=== PATIENT | female | born 1990 | race Caucasian/White ===

== ENCOUNTER 2018-07-29 22:23 | Emergency (ER) | payer SELFPAY ==
[2018-07-29 23:11] LABS: Absolute Lymphocytes (CBC) 2.9 K/uL (0.7-4.9); Absolute Monocytes 0.8 K/uL (0.1-1.3); Absolute Neutrophil 5.9 K/uL (1.8-8.0); Basophils % 0.4 % (0-1.3); Eosinophils % 0.2 % (0-4.4); Hematocrit 44.4 % (36.0-45.0); Lymphocytes % 30.3 % (15.3-44.8); MCH 32.1 pg (27.0-35.0); MCV 91.9 fL (80-100); MPV 7.4 fL (7.6-11.3); RBC Red Blood Cell Count 4.83 M/uL (3.86-4.86)
[2018-07-29 23:15] LABS: Protime INR 1.05
[2018-07-29 23:29] LABS: ALT/SGPT 30 U/L (12-78); AST/SGOT 31 U/L (15-37); Albumin 4.4 g/dL (3.4-5.0); Alkaline Phosphatase 78 U/L (45-117); BUN Blood Urea Nitrogen 7 mg/dL (7-18); Bicarbonate 24 mmol/L (21-32); Bilirubin Direct 0.1 mg/dL (0-0.2); Bilirubin Total 0.2 mg/dL (0.2-1.0); Glucose Level 93 mg/dL (74-106); Potassium 3.2 mmol/L (3.5-5.1); Protein, Total 8.7 g/dL (6.4-8.2); Sodium Level 145 mmol/L (136-145)
[2018-07-29] MEDS ORDERED: THIAMINE 200 MG/2 ML INJ ONE (23:45)
[2018-07-29] MEDS ORDERED: MULTIVITAMINS 10 ML VIAL (INJ) IV ONE (23:45)
[2018-07-29] MEDS ORDERED: NA CHLORIDE 0.9% 2,000 ML ONE (23:46)
[2018-07-29] MEDS ORDERED: FOLIC ACID 5 MG/ML VIAL ONE (23:46)
[2018-07-30] MEDS ORDERED: POTASSIUM CL SA 10 MEQ TAB PO ONE (00:13)
[2018-07-30] MEDS ORDERED: ACETAMINOPHEN 325 MG TABLET ONE (05:49)
[2018-07-30 05:54] LABS: Urine Blood NEGATIVE (NEG); Urine Glucose NEGATIVE (NEG); Urine Protein 1+ (NEG); Urine Specific Gravity >1.030 (1.005-1.030)
[2018-07-30 06:08] LABS: Barbiturates NEGATIVE (NEGATIVE); Benzodiazepines NEGATIVE (NEGATIVE); Cocaine POSITIVE (NEGATIVE); METHAMPHETAM NEGATIVE (NEGATIVE); Methadone NEGATIVE (NEGATIVE); Opiates NEGATIVE (NEGATIVE); Phencyclidine NEGATIVE (NEGATIVE); THC Cannibis NEGATIVE (NEGATIVE)
--- NOTE | 2018-07-30 09:07 | EDPHYS ---
Physician Documentation [facility] Name: Mallorie Munson Age: 28 yrs Sex: Female : 1990 Arrival Date: 07/29/2018 Time: 22:24 Bed 7 Private MD: Rich Stevens T ED Physician Marcin Mims HPI: 07/29 23:37 This 28 yrs old Female presents to ER via Ambulatory with complaints of jr8 Suicidal Ideation. 23:37 The patient presents to the emergency department with suicide ideation, and the patient jr8 has a plan, to cut oneself and bleed. Onset: The symptoms/episode began/occurred acutely, today. Past psychiatric history: Prior diagnosis: depression. Associated signs and symptoms: The patient has no apparent associated signs or symptoms. Severity of symptoms: At their worst the symptoms were moderate in the emergency department the symptoms are unchanged. It is unknown whether or not the patient has had similar symptoms in the past. The patient has not recently seen a physician. Patient stated that she has been depressed for several years. Recent divorce about 3 weeks ago. Has been living with parents since then. Family stated that she has been drinking heavily. Went to get her tonight. After being brought home patient went and grabbed scissors in attempt to cut her wrists. Patient dropped them after the father entered the room. Patient admits to wanting to kill herself. Stated that there is no reason to live any longer . 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 tw2 Historical: - Allergies: 07/29 22:44 No Known Allergies; fc - Home Meds: 22:44 Xanax 2 mg Oral tab twice a day for Anxiety, Panic Disorder [Active]; fc - PMHx: 22:44 Anxiety; Panic Attacks; Depression; fc - PSHx: 22:44 Tonsillectomy; fc - Immunization history:: Last tetanus immunization: unknown. - Social history:: Smoking status: Patient uses tobacco products, smokes one pack cigarettes per day. Patient uses alcohol, on a daily basis. - Ebola Screening: : Patient negative for fever greater than or equal to 101.5 degrees Fahrenheit, and additional compatible Ebola Virus Disease symptoms Patient denies exposure to infectious person Patient denies travel to an Ebola-affected area in the 21 days before illness onset. ROS: 23:37 Eyes: Negative for injury, pain, redness, and discharge, ENT: Negative for injury, jr8 pain, and discharge, Neck: Negative for injury, pain, and swelling, Cardiovascular: Negative for chest pain, palpitations, and edema, Respiratory: Negative for shortness of breath, cough, wheezing, and pleuritic chest pain, Abdomen/GI: Negative for abdominal pain, nausea, vomiting, diarrhea, and constipation, Back: Negative for injury and pain, MS/Extremity: Negative for injury and deformity, Skin: Negative for injury, rash, and discoloration, Neuro: Negative for headache, weakness, numbness, tingling, and seizure. 23:37 Psych: Positive for anxiety, depression, alcohol dependence, suicide gesture, suicidal ideation. Exam: 23:37 Eyes: Pupils equal round and reactive to light, extra-ocular motions intact. Lids and jr8 lashes normal. Conjunctiva and sclera are non-icteric and not injected. Cornea within normal limits. Periorbital areas with no swelling, redness, or edema. ENT: Nares patent. No nasal discharge, no septal abnormalities noted. Tympanic membranes are normal and external auditory canals are clear. Oropharynx with no redness, swelling, or masses, exudates, or evidence of obstruction, uvula midline. Mucous membranes moist. Neck: Trachea midline, no thyromegaly or masses palpated, and no cervical lymphadenopathy. Supple, full range of motion without nuchal rigidity, or vertebral point tenderness. No Meningismus. Cardiovascular: Regular rate and rhythm with a normal S1 and S2. No gallops, murmurs, or rubs. Normal PMI, no JVD. No pulse deficits. Respiratory: Lungs have equal breath sounds bilaterally, clear to auscultation and percussion. No rales, rhonchi or wheezes noted. No increased work of breathing, no retractions or nasal flaring. Abdomen/GI: Soft, non-tender, with normal bowel sounds. No distension or tympany. No guarding or rebound. No evidence of tenderness throughout. Back: No spinal tenderness. No costovertebral tenderness. Full range of motion. Skin: Warm, dry with normal turgor. Normal color with no rashes, no lesions, and no evidence of cellulitis. MS/ Extremity: Pulses equal, no cyanosis. Neurovascular intact. Full, normal range of motion. Neuro: Awake and alert, GCS 15, oriented to person, place, time, and situation. Cranial nerves II-XII grossly intact. Motor strength 5/5 in all extremities. Sensory grossly intact. Cerebellar exam normal. Normal gait. 23:37 Psych: Behavior/mood is cooperative, suicidal, depressed, Affect is flat, Oriented to person, place, time, Patient having thoughts of suicide. Plan for suicide is See HPI Judgement / Insight is impaired. Memory is normal. Delusions/hallucinations are not present. Vital Signs: 22:25 BP 135 / 100; Pulse 110; Resp 20; Temp 98.4(O); Pulse Ox 98% on R/A; Weight 63.5 kg fc (R); Height 5 ft. 2 in. (157.48 cm) (R); Pain 0/10; 07/30 02:47 BP 113 / 64 LA Supine (auto/reg); Pulse 71; Resp 16; Pulse Ox 100% on R/A; Pain 0/10; cc 05:42 BP 118 / 90; Pulse 81; Resp 16; Pulse Ox 99% on R/A; Pain 1/10; cc 09:25 BP 119 / 84; Pulse 71; Resp 18; Temp 99; Pulse Ox 99% ; sv 13:00 BP 130 / 90; Pulse 60; Resp 14; Pulse Ox 99% ; eo 16:43 BP 116 / 81; Pulse 81; Resp 16; Pulse Ox 100% on R/A; Pain 0/10; ms2 20:00 BP 126 / 83; Pulse 80; Resp 18; Temp 98.4; Pulse Ox 98% ; aa8 07/31 00:00 BP 101 / 73; Pulse 83; Resp 16; Temp 97.5; Pulse Ox 98% ; aa8 04:00 BP 134 / 83; Pulse 69; Resp 20; Temp 97.6; Pulse Ox 98% ; aa8 08:00 BP 128 / 93; Pulse 58; Resp 16; Temp 97.1; Pulse Ox 98% ; km7 07/29 22:25 Body Mass Index 25.61 (63.50 kg, 157.48 cm) fc MDM: 07/29 22:27 Patient medically screened. pkl 07/30 08:04 Patient medically screened. [facility] 07/31 08:50 Data reviewed: vital signs, nurses notes, lab test result(s), EKG. [facility] 07/29 22:38 Order name: Acetaminophen [facility] 07/29 22:38 Order name: Basic Metabolic Panel [facility] 07/29 22:38 Order name: CBC with Diff [facility] 07/29 22:38 Order name: ETOH Level; Complete Time: 23:31 8 07/29 22:38 Order name: Hepatic Function; Complete Time: 23:31 8 07/29 22:38 Order name: PT-INR; Complete Time: 23:27 [facility] 07/29 22:38 Order name: Ptt, Activated; Complete Time: 23:27 [facility] 07/29 22:38 Order name: Salicylate; Complete Time: 23:42 8 07/29 22:38 Order name: Urine Drug Screen; Complete Time: 07:31 [facility] 07/29 22:38 Order name: EKG; Complete Time: 22:38 [facility] 07/29 22:38 Order name: Acetaminophen Level; Complete Time: 23:31 EDMS 07/29 22:38 Order name: Basic Metabolic Panel; Complete Time: 23:31 EDIL 07/29 22:38 Order name: CBC with Automated Diff; Complete Time: 23:27 EDIL 07/30 05:45 Order name: Urine Dipstick--Ancillary (enter results); Complete Time: 07:31 ms 07/30 05:45 Order name: Urine --Ancillary (enter results); Complete Time: 07:31 ms 07/30 07:23 Order name: Diet Regular; Complete Time: 07:24 eb 07/30 07:31 Order name: Alcohol Level; Complete Time: 15:07 jaren 07/29 22:38 Order name: Urine Test (obtain specimen); Complete Time: 05:50 [facility] 07/29 22:38 Order name: EKG - Nurse/Tech; Complete Time: 22:59 [facility] 07/29 22:38 Order name: IV Saline Lock; Complete Time: 22:59 [facility] 07/29 22:38 Order name: Labs collected and sent; Complete Time: 22:59 [facility] 07/29 22:38 Order name: Urine Dipstick-Ancillary (obtain specimen); Complete Time: 05:42 8 07/30 12:26 Order name: Diet Finger Food; Complete Time: 12:26 hb Administered Medications: 07/30 00:01 Drug: NS 0.9% 1000 ml Route: IV; Rate: 1000 ml; Site: right antecubital; bp 05:50 Follow up: IV Status: Completed infusion; IV Intake: 1000ml bp 00:02 Drug: Banana Bag - (NS 0.9% 1000 ml, foLIC Acid 1 mg, Thiamine 100 mg, Multivitamin 1 bp amp) Route: IV; Rate: calculated rate; Site: right antecubital; 05:50 Follow up: IV Status: Completed infusion; IV Intake: 1000ml bp 00:05 Drug: Potassium Chloride 40 mEq Route: PO; bp 05:46 Follow up: Response: No adverse reaction bp 05:49 Drug: Tylenol 650 mg Route: PO; bp 06:00 Follow up: Response: Pain is decreased bp Disposition: 07/31 08:49 Co-signature as Attending Physician, Marcin Mims MD I agree with the assessment and [facility] plan of care. Disposition: 07/31/18 08:51 Discharged to Home. Impression: Suicide attempt, Suicidal ideations, Alcohol abuse with intoxication, Cocaine abuse, Major depressive disorder, recurrent, Hypokalemia. - Condition is Stable. - Discharge Instructions: Alcohol Intoxication, Potassium Content of Foods, Suicidal Feelings: How to Help Yourself, Helping Someone Who is Suicidal, Alcohol Intoxication, [id number], Alcohol Abuse and Nutrition, Hypokalemia. - Medication Reconciliation Form, Thank You Letter, Antibiotic Education, Prescription Opioid Use form. - Follow up: Rich Stevens; When: 1 - 2 days; Reason: Recheck today's complaints, Continuance of care, Re-evaluation by your physician. - Problem is new. - Symptoms have improved. Signatures: Dispatcher [employer] EDMarcin De Souza MD MD cha Lam, Pin, MD MD pkl Chretien, Felicia, RN RN fc Mechelle Lobato RN RN Sven Ryan PA PA jr Yanelis [facility] Davin Upton RN RN bp Corrections: (The following items were deleted from the chart) 07/29 23:41 23:37 Psych: Positive for anxiety, depression, alcohol dependence, suicide gestureaubrey jr8 07/31 08:50 09 09:06 07/30/2018 09:06 Transfer ordered to Psych Facility. Diagnosis is Major jaren depressive disorder, recurrent; Suicidal ideations; Cocaine abuse; Alcohol abuse. Reason for transfer: Higher level of care. Accepting physician is to psych. Condition is Stable. Problem is new. Symptoms have improved. [facility] 07/31 09:35 08:51 07/31/2018 08:51 Discharged to Home. Impression: Suicide attempt; Suicidal dh3 ideations; Alcohol abuse with intoxication; Cocaine abuse; Major depressive disorder, recurrent; Hypokalemia. Condition is Stable. Forms are Medication Reconciliation Form, Thank You Letter, Antibiotic Education, Prescription Opioid Use. Follow up: Rich Stevens; When: 1 - 2 days; Reason: Recheck today's complaints, Continuance of care, Re-evaluation by your physician. Problem is new. Symptoms have improved. jaren
--- NOTE | 2018-07-30 09:07 | ER ---
Nurse's Notes [facility] Name: Mallorie Munson Age: 28 yrs Sex: Female : 1990 Arrival Date: 07/29/2018 Time: 22:24 Bed 7 Private MD: Rich Stevens T Diagnosis: Suicide attempt;Suicidal ideations;Alcohol abuse with intoxication;Cocaine abuse;Major depressive disorder, recurrent;Hypokalemia Presentation: 07/29 22:25 Presenting complaint: Father states: that pt has been drinking today and after picking fc her up to bring her home pt picked up a pair of scissors to hurt herself with. When the patient was asked about this she states that she was going to cut her wrists with them. The father states that the patient has just recently filed for divorce and has become more depressed. She has admitted to being depressed x 8 yrs and her would not buy the medications she needed. Transition of care: patient was not received from another setting of care. Onset of symptoms was 2017. Risk Assessment: Do you want to hurt yourself or someone else? Patient reports desire/thoughts of hurting themselves or someone else. Provider notified. Initial Sepsis Screen: Does the patient meet any 2 criteria? No. Patient's initial sepsis screen is negative. Does the patient have a suspected source of infection? No. Patient's initial sepsis screen is negative. Care prior to arrival: None. 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 tw2 Historical: - Allergies: 07/29 22:44 No Known Allergies; fc - Home Meds: 22:44 Xanax 2 mg Oral tab twice a day for Anxiety, Panic Disorder [Active]; fc - PMHx: 22:44 Anxiety; Panic Attacks; Depression; fc - PSHx: 22:44 Tonsillectomy; fc - Immunization history:: Last tetanus immunization: unknown. - Social history:: Smoking status: Patient uses tobacco products, smokes one pack cigarettes per day. Patient uses alcohol, on a daily basis. - Ebola Screening: : Patient negative for fever greater than or equal to 101.5 degrees Fahrenheit, and additional compatible Ebola Virus Disease symptoms Patient denies exposure to infectious person Patient denies travel to an Ebola-affected area in the 21 days before illness onset. Screenin:41 Abuse screen: Denies threats or abuse. Nutritional screening: No deficits noted. fc Tuberculosis screening: No symptoms or risk factors identified. Fall Risk None identified. Assessment: 22:30 General: Appears in no apparent distress. comfortable, slender, Behavior is bp cooperative, appropriate for age, anxious. General: Smells of alcohol. General: 28YO WF P/W ETOH INTOXICATION AND SUICIDAL IDEATION. PT CITES RECENT FAMILY STRESSORS. +ETOH ODOR, DENIES SUICIDAL ATTEMPT. Pain: Denies pain. Neuro: Level of Consciousness is awake, alert, obeys commands, Oriented to person, place, time, situation, Appropriate for age. Cardiovascular: Rhythm is sinus tachycardia. Respiratory: Airway is patent Respiratory effort is even, unlabored, Respiratory pattern is regular, symmetrical. GI: No signs and/or symptoms were reported involving the gastrointestinal system. : No signs and/or symptoms were reported regarding the genitourinary system. EENT: No deficits noted. Derm: No deficits noted. Musculoskeletal: Circulation, motion, and sensation intact. Range of motion: intact in all extremities. 07/30 01:11 Reassessment: PT UNCOOPERATIVE, REFUSING IVF AND URINE SPECIMEN. PROVIDER NOTIFIED. bp 03:34 Reassessment: MEDICAL CLEARANCE PENDING SOBRIETY, PT RESTING QUIETLY. bp 07:15 Reassessment: Patient appears in no apparent distress at this time. Patient and/or hb family updated on plan of care and expected duration. Pain level reassessed. Patient is alert, oriented x 3, equal unlabored respirations, skin warm/dry/pink. Denies SI/HI at this time. 07:52 Reassessment: Parents called and will be coming up here. sv 08:15 Reassessment: Patient appears in no apparent distress at this time. Patient and/or hb family updated on plan of care and expected duration. Pain level reassessed. Patient is alert, oriented x 3, equal unlabored respirations, skin warm/dry/pink. Denies SI/HI at this time. 08:23 Reassessment: Repeat ETOH sent. hb 09:00 Reassessment: Patient appears in no apparent distress at this time. No changes from hb previously documented assessment. Patient and/or family updated on plan of care and expected duration. Pain level reassessed. Patient is alert, oriented x 3, equal unlabored respirations, skin warm/dry/pink. Reassessment: Patient appears in no apparent distress at this time. No changes from previously documented assessment. Patient and/or family updated on plan of care and expected duration. Pain level reassessed. Patient is alert, oriented x 3, equal unlabored respirations, skin warm/dry/pink. Sitter remains at bedside. 10:00 Reassessment: Patient appears in no apparent distress at this time. Patient and/or family updated on plan of care and expected duration. Pain level reassessed. Patient is alert, oriented x 3, equal unlabored respirations, skin warm/dry/pink. 10:06 Reassessment: spoke with [facility] who reports that they do not have any beds at this time and will call back after they discharge patient around 1500 today. 11:00 Reassessment: Patient appears in no apparent distress at this time. No changes from previously documented assessment. Patient and/or family updated on plan of care and expected duration. Pain level reassessed. Patient is alert, oriented x 3, equal unlabored respirations, skin warm/dry/pink. 12:00 Reassessment: Patient appears in no apparent distress at this time. No changes from previously documented assessment. Patient and/or family updated on plan of care and expected duration. Pain level reassessed. Patient is alert, oriented x 3, equal unlabored respirations, skin warm/dry/pink. 13:00 Reassessment: Patient appears in no apparent distress at this time. No changes from previously documented assessment. Patient and/or family updated on plan of care and expected duration. Pain level reassessed. Patient is alert, oriented x 3, equal unlabored respirations, skin warm/dry/pink. 13:57 Reassessment: Patient appears in no apparent distress at this time. No changes from previously documented assessment. Patient and/or family updated on plan of care and expected duration. Pain level reassessed. Patient is alert, oriented x 3, equal unlabored respirations, skin warm/dry/pink. 14:29 Reassessment: spoke with Darshan Piña who states that they will call back with information within the next hour. [facility] has no beds and patient will remains on waiting list. 15:30 Reassessment: Patient appears in no apparent distress at this time. No changes from hb previously documented assessment. Patient and/or family updated on plan of care and expected duration. Pain level reassessed. 16:30 Reassessment: Patient appears in no apparent distress at this time. No changes from hb previously documented assessment. Patient and/or family updated on plan of care and expected duration. Pain level reassessed. Patient is alert, oriented x 3, equal unlabored respirations, skin warm/dry/pink. 17:30 Reassessment: Patient appears in no apparent distress at this time. No changes from hb previously documented assessment. Resting comfortably with eyes closed. Sitter remains at bedside. 18:30 Reassessment: Patient appears in no apparent distress at this time. No changes from hb previously documented assessment. Patient and/or family updated on plan of care and expected duration. Pain level reassessed. Patient is alert, oriented x 3, equal unlabored respirations, skin warm/dry/pink. Sitter remains at bedside. 19:00 Reassessment: RECD REPORT FROM SHERRI CARD. 28YO WF ORIGINALLY PRESENTED WITH SI AND bp ETOH INTOXICATION. PT NOW AWAITING VOLUNTARY PSYCH TRANSFER. SITTER AT B/S. 07/31 00:00 Reassessment: PT RESTING QUIETLY, STILL ENDORSING DESIRE FOR PSYCH PLACEMENT, NO ACUTE bp S/S OF DISTRESS AT THIS TIME. 04:00 Reassessment: PT RESTING QUIETLY, VS STABLE, PT CALM/COOPERATIVE, PSYCH TRANSFER STILL bp PENDING. 08:10 Reassessment: pt states "i am ready to go home, Dr. Stevens will prescribe the tw2 antidepressants i need", pts father Ghassan called at [phone], pts father is agreeable to discharge and will make sure pt has follow up appts as no facility has a bed for the pt, father will be up here within the hour, Dr. Mims will consult father once he arrives and the potentially discharge. 09:00 Reassessment: Patient appears in no apparent distress at this time. No changes from tw2 previously documented assessment. Patient and/or family updated on plan of care and expected duration. Pain level reassessed. Patient is alert, oriented x 3, equal unlabored respirations, skin warm/dry/pink. pts dad here, conversation with Dr. Mims, plan to get pt to Dr. Stevens for evaluation and treatment and pt and pts dad is agreeable to discharge at this time, security is retrieving pts belongings. Psych: 07/29 22:42 Subjective: Patient's mood is sad, irritable, hopeless, Delusions are denied, fc Hallucinations are denied Having thoughts of suicide. Plan for suicide is to cut wrists. Objective: Patient is uncooperative, defensive, irritable, using poor eye contact, Speech is normal, Affect is flat. Interventions: Removed personal items and placed in bag. Patient placed in hospital gown. Searched person for dangerous items. Suicide Risk Assessment: Sad Person Scale: Sex of patient: Female: Score 0 points. Age of patient: Score 1 point if patient 15-34. Depression: Score 1 point if signs of depression are present. Previous Attempt: Score 1 point if patient has previously attempted suicide. Substance Abuse: Score 1 point if patient abuses alcohol or drugs. Rational Thinking: Score 1 point if patient is lacking rational thinking. Social Support: Score 0 if social support is present/available. Organized Plan: Score 1 point if patient had a plan in place. Relationship: Score 1 point if patient is , , , or for a single male Chronic Sickness: Score 0 point if patient does not have a chronic illness, debilitating, or severe disorder. TOTAL POINTS: If total points are 7-10, the proposed clinical action is to hospitalize or commit. Implement suicide precautions. Safety Checks: Personal items have been removed. Door is open. Visitors are present. Patient uses daily. Last use was today. Vital Signs: 22:25 BP 135 / 100; Pulse 110; Resp 20; Temp 98.4(O); Pulse Ox 98% on R/A; Weight 63.5 kg fc (R); Height 5 ft. 2 in. (157.48 cm) (R); Pain 0/10; 07/30 02:47 BP 113 / 64 LA Supine (auto/reg); Pulse 71; Resp 16; Pulse Ox 100% on R/A; Pain 0/10; cc 05:42 BP 118 / 90; Pulse 81; Resp 16; Pulse Ox 99% on R/A; Pain 1/10; cc 09:25 BP 119 / 84; Pulse 71; Resp 18; Temp 99; Pulse Ox 99% ; sv 13:00 BP 130 / 90; Pulse 60; Resp 14; Pulse Ox 99% ; eo 16:43 BP 116 / 81; Pulse 81; Resp 16; Pulse Ox 100% on R/A; Pain 0/10; ms2 20:00 BP 126 / 83; Pulse 80; Resp 18; Temp 98.4; Pulse Ox 98% ; aa8 09 00:00 BP 101 / 73; Pulse 83; Resp 16; Temp 97.5; Pulse Ox 98% ; aa8 04:00 BP 134 / 83; Pulse 69; Resp 20; Temp 97.6; Pulse Ox 98% ; aa8 08:00 BP 128 / 93; Pulse 58; Resp 16; Temp 97.1; Pulse Ox 98% ; km7 07/29 22:25 Body Mass Index 25.61 (63.50 kg, 157.48 cm) ED Course: 07/29 22:24 Patient arrived in ED. es 22:25 Rich Stevens MD is Private Physician. es 22:25 Arm band placed on Patient placed in an exam room, on a stretcher. fc 22:27 Stanley Villa MD is Attending Physician. pkl 22:29 Sven Winn PA is PHCP. jr8 22:40 Triage completed. fc 22:41 Davin Upton, STEPHIE is Primary Nurse. bp 22:41 Patient has correct armband on for positive identification. Placed in gown. Bed in low fc position. Call light in reach. Side rails up X 1. 22:41 No provider procedures requiring assistance completed. fc 22:45 Safety checks: Items removed: yes. Door open/sign placed on door: yes. Family/friend cc present: yes. Family/friends encouraged to stay with patient. Sitter present: Yes. 22:59 Initial lab(s) drawn, by me, sent to lab. Inserted saline lock: 20 gauge in right cc antecubital area, using aseptic technique. Blood collected. 23:00 Safety checks: Items removed: yes. Door open/sign placed on door: yes. Family/friend cc present: yes. Family/friends encouraged to stay with patient. Sitter present: Yes. 23:15 Safety checks: Items removed: yes. Door open/sign placed on door: yes. Family/friend cc present: yes. Family/friends encouraged to stay with patient. Sitter present: Yes. 23:30 Safety checks: Items removed: yes. Door open/sign placed on door: yes. Family/friend cc present: yes. Family/friends encouraged to stay with patient. Sitter present: Yes. 23:45 Safety checks: Items removed: yes. Door open/sign placed on door: yes. Family/friend cc present: no. Sitter present: Yes. 07/30 00:00 Safety checks: Items removed: yes. Door open/sign placed on door: yes. Family/friend cc present: no. Sitter present: Yes. 00:15 Safety checks: Items removed: yes. Door open/sign placed on door: yes. Family/friend cc present: no. Sitter present: Yes. 00:30 Safety checks: Items removed: yes. Door open/sign placed on door: yes. Family/friend cc present: no. Sitter present: Yes. 00:45 Safety checks: Items removed: yes. Door open/sign placed on door: yes. Family/friend cc present: no. Sitter present: Yes. 01:00 Safety checks: Items removed: yes. Door open/sign placed on door: yes. Family/friend cc present: no. Sitter present: Yes. 01:15 Safety checks: Items removed: yes. Door open/sign placed on door: yes. Family/friend cc present: no. Sitter present: Yes. 01:30 Safety checks: Items removed: yes. Door open/sign placed on door: yes. Family/friend cc present: no. Sitter present: Yes. 01:30 Safety checks: Items removed: yes. Door open/sign placed on door: yes. Family/friend aa8 present: no. Sitter present: Yes. 01:45 Safety checks: Items removed: yes. Door open/sign placed on door: yes. Family/friend cc present: no. Sitter present: Yes. 02:00 Safety checks: Items removed: yes. Door open/sign placed on door: yes. Family/friend cc present: no. Sitter present: Yes. 02:15 Safety checks: Items removed: yes. Door open/sign placed on door: yes. Family/friend cc present: no. Sitter present: Yes. 02:30 Safety checks: Items removed: yes. Door open/sign placed on door: yes. Family/friend cc present: no. Sitter present: Yes. 02:37 personal items inventoried and given to security. cc 02:45 Safety checks: Items removed: yes. Door open/sign placed on door: yes. Family/friend cc present: no. Sitter present: Yes. 03:00 Safety checks: Items removed: yes. Door open/sign placed on door: yes. Family/friend cc present: no. Sitter present: Yes. 03:15 Safety checks: Items removed: yes. Door open/sign placed on door: yes. Family/friend cc present: no. Sitter present: Yes. 03:30 Safety checks: Items removed: yes. Door open/sign placed on door: yes. Family/friend cc present: no. Sitter present: Yes. 03:45 Safety checks: Items removed: yes. Door open/sign placed on door: yes. Family/friend cc present: no. Sitter present: Yes. 04:00 Safety checks: Items removed: yes. Door open/sign placed on door: yes. Family/friend cc present: no. Sitter present: Yes. 04:15 Safety checks: Items removed: yes. Door open/sign placed on door: yes. Family/friend cc present: no. Sitter present: Yes. 04:30 Safety checks: Items removed: yes. Door open/sign placed on door: yes. Family/friend cc present: no. Sitter present: Yes. 04:45 Safety checks: Items removed: yes. Door open/sign placed on door: yes. Family/friend cc present: no. Sitter present: Yes. 05:00 Safety checks: Items removed: yes. Door open/sign placed on door: yes. Family/friend cc present: no. Sitter present: Yes. 05:15 Safety checks: Items removed: yes. Door open/sign placed on door: yes. Family/friend cc present: no. Sitter present: Yes. 05:30 Safety checks: Items removed: yes. Door open/sign placed on door: yes. Family/friend cc present: no. Sitter present: Yes. 05:45 Safety checks: Items removed: yes. Door open/sign placed on door: yes. Family/friend cc present: no. Sitter present: Yes. 06:00 Safety checks: Items removed: yes. Door open/sign placed on door: yes. Family/friend cc present: no. Sitter present: Yes. 06:15 Safety checks: Items removed: yes. Door open/sign placed on door: yes. Family/friend cc present: no. Sitter present: Yes. 06:30 Safety checks: Items removed: yes. Door open/sign placed on door: yes. Family/friend cc present: no. Sitter present: Yes. 06:45 Safety checks: Items removed: yes. Door open/sign placed on door: yes. Family/friend cc present: no. Sitter present: Yes. 07:14 Safety checks: Items removed: yes. Door open/sign placed on door: yes. Family/friend em1 present: no. Sitter present: Yes. 07:30 Safety checks: Items removed: yes. Door open/sign placed on door: yes. Family/friend em1 present: no. Sitter present: Yes. 07:45 Safety checks: Items removed: yes. Door open/sign placed on door: yes. Family/friend em1 present: no. Sitter present: Yes. 07:50 Attending Physician role handed off by Stanley Villa MD jaren 07:50 Marcin Mims MD is Attending Physician. jaren 08:04 Safety checks: Items removed: yes. Door open/sign placed on door: yes. Family/friend eo present: no. Sitter present: Yes. 08:15 Safety checks: Items removed: yes. Door open/sign placed on door: yes. Family/friend eo present: no. Sitter present: Yes. 08:22 Alcohol Level Sent. hb 08:30 Safety checks: Items removed: yes. Door open/sign placed on door: yes. Family/friend eo present: no. Sitter present: Yes. 08:45 Safety checks: Items removed: yes. Door open/sign placed on door: yes. Family/friend eo present: no. Sitter present: Yes. 09:00 Safety checks: Items removed: yes. Door open/sign placed on door: yes. Family/friend eo present: yes. Sitter present: Yes. 09:15 Safety checks: Items removed: yes. Door open/sign placed on door: yes. Family/friend eo present: no. Sitter present: Yes. 09:28 faxed patient records to the following facilities for patient transfer ; richelle De Leon [facility], [facility], [facility], [facility], [facility], [facility], [facility], [facility], [facility], [facility], [facility], [facility], [facility]. 09:30 Safety checks: Items removed: yes. Door open/sign placed on door: yes. Family/friend eo present: no. Sitter present: Yes. 09:40 initiated transfer with Urvashi from the [facility] transfer center. Per Urvashi they are eb at capacity and are unable to take any transfers at this time. 09:45 Safety checks: Items removed: yes. Door open/sign placed on door: yes. Family/friend eo present: no. Sitter present: Yes. 10:00 Safety checks: Items removed: yes. Door open/sign placed on door: yes. Family/friend eo present: no. Sitter present: Yes. 10:16 Safety checks: Items removed: yes. Door open/sign placed on door: yes. Family/friend eo present: no. Sitter present: Yes. 10:30 Safety checks: Items removed: yes. Door open/sign placed on door: yes. Family/friend eo present: no. Sitter present: Yes. 10:45 Safety checks: Items removed: yes. Door open/sign placed on door: yes. Family/friend eo present: no. Sitter present: Yes. 11:01 Safety checks: Items removed: yes. Door open/sign placed on door: yes. Family/friend eo present: no. Sitter present: Yes. 11:14 [facility] called and declined the patient in transfer due to them being at eb capacity. 11:15 Safety checks: Items removed: yes. Door open/sign placed on door: yes. Family/friend eo present: no. Sitter present: Yes. 11:30 Safety checks: Items removed: yes. Door open/sign placed on door: yes. Family/friend eo present: no. Sitter present: Yes. 11:45 Safety checks: Items removed: yes. Door open/sign placed on door: yes. Family/friend eo present: no. Sitter present: Yes. 12:00 Safety checks: Items removed: yes. Door open/sign placed on door: yes. Family/friend eo present: no. Sitter present: Yes. 12:15 Safety checks: Items removed: yes. Door open/sign placed on door: yes. Family/friend eo present: no. Sitter present: Yes. 12:30 Safety checks: Items removed: yes. Door open/sign placed on door: yes. Family/friend eo present: no. Sitter present: Yes. 12:45 Safety checks: Items removed: yes. Door open/sign placed on door: yes. Family/friend eo present: yes. Sitter present: Yes. 13:00 Safety checks: Items removed: yes. Door open/sign placed on door: yes. Family/friend eo present: no. Sitter present: Yes. 13:15 Safety checks: Items removed: yes. Door open/sign placed on door: yes. Family/friend eo present: no. Sitter present: Yes. 13:30 Safety checks: Items removed: yes. Door open/sign placed on door: yes. Family/friend eo present: no. Sitter present: Yes. 13:45 Safety checks: Items removed: yes. Door open/sign placed on door: yes. Family/friend eo present: no. Sitter present: Yes. 14:00 Safety checks: Items removed: yes. Door open/sign placed on door: Patient placed in eo hallway bed. yes. Family/friend present: no. Sitter present: Yes. 14:16 Safety checks: Items removed: yes. Door open/sign placed on door: yes. Family/friend ms2 present: Sitter present: Yes. 14:25 Safety checks: Items removed: yes. Door open/sign placed on door: yes. Family/friend ms2 present: no. Sitter present: Yes. 14:36 Safety checks: Items removed: yes. Door open/sign placed on door: yes. Family/friend ms2 present: no. Sitter present: Yes. 14:54 Safety checks: Items removed: yes. Door open/sign placed on door: yes. Family/friend ms2 present: no. Sitter present: Yes. 15:08 Safety checks: Items removed: yes. Door open/sign placed on door: yes. Family/friend ms2 present: no. Sitter present: Yes. 15:38 Safety checks: Items removed: yes. Door open/sign placed on door: yes. Family/friend ms2 present: no. Sitter present: Yes. 15:55 Safety checks: Items removed: yes. Door open/sign placed on door: yes. Family/friend ms2 present: no. Sitter present: Yes. 16:10 Safety checks: Items removed: yes. Door open/sign placed on door: yes. Family/friend ms2 present: no. Sitter present: Yes. 16:23 Safety checks: Items removed: yes. Door open/sign placed on door: yes. Family/friend ms2 present: no. Sitter present: Yes. 16:42 Safety checks: Items removed: yes. Door open/sign placed on door: yes. Family/friend ms2 present: no. Sitter present: Yes. 16:53 Safety checks: Items removed: yes. Door open/sign placed on door: yes. Family/friend ms2 present: no. Sitter present: Yes. 17:13 Safety checks: Items removed: yes. Door open/sign placed on door: yes. Family/friend ms2 present: no. Sitter present: Yes. 17:26 Safety checks: Items removed: yes. Door open/sign placed on door: yes. Family/friend ms2 present: no. Sitter present: Yes. 17:42 Safety checks: Items removed: yes. Door open/sign placed on door: yes. Family/friend ms2 present: no. Sitter present: Yes. 17:57 Safety checks: Items removed: yes. Door open/sign placed on door: yes. Family/friend ms2 present: no. Sitter present: Yes. 18:12 Safety checks: Items removed: yes. Door open/sign placed on door: yes. Family/friend ms2 present: no. Sitter present: Yes. 18:27 Safety checks: Items removed: yes. Door open/sign placed on door: yes. Family/friend ms2 present: no. Sitter present: Yes. 18:42 Safety checks: Items removed: yes. Door open/sign placed on door: yes. Family/friend ms2 present: no. Sitter present: Yes. 19:00 Safety checks: Items removed: yes. Door open/sign placed on door: yes. Family/friend aa8 present: no. Sitter present: Yes. 19:15 Safety checks: Items removed: yes. Door open/sign placed on door: yes. Family/friend aa8 present: no. Sitter present: Yes. 19:45 Safety checks: Items removed: yes. Door open/sign placed on door: yes. Family/friend aa8 present: no. Sitter present: Yes. 20:00 Safety checks: Items removed: yes. Door open/sign placed on door: yes. Family/friend aa8 present: no. Sitter present: Yes. 20:15 Safety checks: Items removed: yes. Door open/sign placed on door: yes. Family/friend aa8 present: no. Sitter present: Yes. 20:30 Safety checks: Items removed: yes. Door open/sign placed on door: yes. Family/friend aa8 present: no. Sitter present: Yes. 20:45 Safety checks: Items removed: yes. Door open/sign placed on door: yes. Family/friend aa8 present: no. Sitter present: Yes. 21:00 Safety checks: Items removed: yes. Door open/sign placed on door: yes. Family/friend aa8 present: no. Sitter present: Yes. 21:15 Safety checks: Items removed: yes. Family/friend present: yes. no. Sitter present: Yes. aa8 21:30 Safety checks: Items removed: yes. Door open/sign placed on door: yes. Family/friend aa8 present: no. Sitter present: Yes. 21:45 Safety checks: Items removed: yes. no. Reason for not removing items: Door open/sign aa8 placed on door: yes. Family/friend present: no. Sitter present: Yes. 22:00 Safety checks: Items removed: yes. Door open/sign placed on door: yes. Family/friend aa8 present: no. Sitter present: Yes. 22:15 Safety checks: Items removed: yes. Door open/sign placed on door: yes. Family/friend aa8 present: no. Sitter present: Yes. 22:30 Safety checks: Items removed: yes. Door open/sign placed on door: yes. no. aa8 Family/friend present: no. Sitter present: Yes. 22:45 Safety checks: Items removed: yes. Door open/sign placed on door: yes. Family/friend aa8 present: no. Sitter present: Yes. 23:00 Safety checks: Items removed: yes. Door open/sign placed on door: yes. Family/friend aa8 present: no. Sitter present: Yes. 23:15 Safety checks: Items removed: yes. Door open/sign placed on door: yes. Family/friend aa8 present: no. Sitter present: Yes. 23:30 Safety checks: Items removed: yes. Door open/sign placed on door: yes. Family/friend aa8 present: no. Sitter present: Yes. 23:45 Safety checks: Items removed: yes. Door open/sign placed on door: yes. Family/friend aa8 present: no. Sitter present: Yes. 23:59 Refaxed patients information to all available psych facilities. [facility] 07/31 00:00 Safety checks: Items removed: yes. Door open/sign placed on door: yes. Family/friend aa8 present: no. Sitter present: Yes. 00:15 Safety checks: Items removed: yes. Door open/sign placed on door: yes. Family/friend aa8 present: no. Sitter present: Yes. 00:45 Safety checks: Items removed: yes. Door open/sign placed on door: yes. Family/friend aa8 present: no. Sitter present:. 01:00 Safety checks: Items removed: yes. Door open/sign placed on door: yes. Family/friend aa8 present: no. Sitter present: Yes. 01:15 Safety checks: Items removed: yes. Door open/sign placed on door: yes. Family/friend aa8 present: no. Sitter present: Yes. 01:30 Safety checks: Items removed: yes. Door open/sign placed on door: yes. Family/friend aa8 present: no. Sitter present: Yes. 01:45 Safety checks: Items removed: yes. Door open/sign placed on door: yes. Family/friend aa8 present: no. Sitter present: Yes. 01:57 [facility] facility called and stated they don't have any beds available. [facility] 02:00 Safety checks: Items removed: yes. Door open/sign placed on door: yes. Family/friend aa8 present: no. Sitter present: Yes. 02:15 Safety checks: Items removed: yes. Door open/sign placed on door: yes. Family/friend aa8 present: no. Sitter present: Yes. 02:29 CBC with Diff Sent. bp 02:29 Basic Metabolic Panel Sent. bp 02:29 Acetaminophen Sent. bp 02:30 Safety checks: Items removed: yes. Door open/sign placed on door: yes. Family/friend aa8 present: no. Sitter present: Yes. Safety checks: Items removed:. 02:45 Safety checks: Items removed: yes. Door open/sign placed on door: yes. Family/friend aa8 present: no. Sitter present: Yes. 03:00 Safety checks: Items removed: yes. Door open/sign placed on door: yes. Family/friend aa8 present: no. Sitter present: Yes. 03:15 Safety checks: Items removed: yes. Door open/sign placed on door: yes. Family/friend aa8 present: no. Sitter present: Yes. 03:30 Safety checks: Items removed: yes. Door open/sign placed on door: yes. Family/friend aa8 present: no. Sitter present: Yes. 03:45 Safety checks: Items removed: yes. Door open/sign placed on door: yes. Family/friend aa8 present: no. Sitter present: Yes. 04:00 Safety checks: Items removed: yes. Door open/sign placed on door: yes. Family/friend aa8 present: no. Sitter present: Yes. 04:15 Safety checks: Items removed: yes. Door open/sign placed on door: yes. Family/friend aa8 present: no. Sitter present: Yes. 04:30 Safety checks: Items removed: yes. Door open/sign placed on door: yes. Family/friend aa8 present: no. Sitter present: Yes. 04:45 Safety checks: Items removed: yes. Door open/sign placed on door: yes. Family/friend aa8 present: no. Sitter present: Yes. Safety checks:. 05:00 Safety checks: Items removed: yes. Door open/sign placed on door: yes. Family/friend aa8 present: no. Sitter present: Yes. 05:15 Safety checks: Items removed: yes. Door open/sign placed on door: yes. Family/friend aa8 present: no. Sitter present: Yes. 05:30 Safety checks: Items removed: yes. no. Reason for not removing items: Door open/sign aa8 placed on door: yes. Family/friend present: no. Sitter present: Yes. 05:45 Safety checks: Items removed: yes. Door open/sign placed on door: yes. Family/friend aa8 present: no. Sitter present: Yes. 06:00 Safety checks: Items removed: yes. Door open/sign placed on door: yes. Family/friend aa8 present: no. Sitter present: Yes. 06:15 Safety checks: Items removed: yes. Door open/sign placed on door: yes. Family/friend aa8 present: no. Sitter present: Yes. 06:30 Safety checks: Items removed: yes. Door open/sign placed on door: yes. Family/friend aa8 present: no. Sitter present: Yes. 06:45 Safety checks: Items removed: yes. Door open/sign placed on door: yes. Family/friend aa8 present: no. Sitter present: Yes. 07:00 Safety Checks: Personal items have been removed. The door is open or patient has been km7 placed in a hallway bed/chair. There are no family/friend visitors at this time pt sleeping, respirations even and unlabored. Sitter present at this time. 07:00 Safety checks: Items removed: yes. Door open/sign placed on door: yes. Family/friend aa8 present: no. Sitter present: Yes. 07:15 Safety Checks: Personal items have been removed. The door is open or patient has been km7 placed in a hallway bed/chair. There are no family/friend visitors at this time Sitter present at this time. 07:21 Primary Nurse role handed off by Davin Upton RN tw2 07:21 Columba Sánchez, RN is Primary Nurse. tw2 07:30 Safety Checks: Personal items have been removed. The door is open or patient has been km7 placed in a hallway bed/chair. There are no family/friend visitors at this time Sitter present at this time. 07:45 Safety Checks: Personal items have been removed. The door is open or patient has been km7 placed in a hallway bed/chair. There are no family/friend visitors at this time Sitter present at this time. 08:00 Safety Checks: Personal items have been removed. The door is open or patient has been tw2 placed in a hallway bed/chair. There are no family/friend visitors at this time Sitter present at this time. 08:15 No apparent distress. Resting quietly. Safety Checks: Personal items have been removed. tw2 The door is open or patient has been placed in a hallway bed/chair. There are no family/friend visitors at this time Sitter present at this time. 08:30 Safety Checks: Personal items have been removed. The door is open or patient has been tw2 placed in a hallway bed/chair. There are no family/friend visitors at this time Sitter present at this time. 08:39 No apparent distress. father of patient arrived. km7 08:45 Safety Checks: Personal items have been removed. The door is open or patient has been km7 placed in a hallway bed/chair. A family member and/or friend is present and encouraged to stay. Sitter present at this time. 08:51 Rich Stevens MD is Referral Physician. [facility] 09:00 Safety Checks: Personal items have been removed. The door is open or patient has been km7 placed in a hallway bed/chair. A family member and/or friend is present and encouraged to stay. Sitter present at this time. DC IV- pt pending dc. 09:11 pt DC at 0910 w/ father and to f/o w/ Dr. Gannon for continuation of care. pt pleasant, km7 aaox3 and agreeable to treatment. 09:20 IV discontinued, intact, bleeding controlled, No redness/swelling at site. Pressure tw2 dressing applied. Administered Medications: 07/30 00:01 Drug: NS 0.9% 1000 ml Route: IV; Rate: 1000 ml; Site: right antecubital; bp 05:50 Follow up: IV Status: Completed infusion; IV Intake: 1000ml bp 00:02 Drug: Banana Bag - (NS 0.9% 1000 ml, foLIC Acid 1 mg, Thiamine 100 mg, Multivitamin 1 bp amp) Route: IV; Rate: calculated rate; Site: right antecubital; 05:50 Follow up: IV Status: Completed infusion; IV Intake: 1000ml bp 00:05 Drug: Potassium Chloride 40 mEq Route: PO; bp 05:46 Follow up: Response: No adverse reaction bp 05:49 Drug: Tylenol 650 mg Route: PO; bp 06:00 Follow up: Response: Pain is decreased bp Intake: 05:50 IV: 1000ml; Total: 1000ml. bp 05:50 IV: 1000ml; Total: 2000ml. bp Outcome: 09:06 ER care complete, transfer ordered by . [facility] 07/31 08:51 Discharge ordered by . [facility] 09:20 Discharged to home ambulatory, with family. tw2 09:20 Condition: stable 09:20 Discharge instructions given to patient, family, Instructed on discharge instructions, follow up and referral plans. Demonstrated understanding of instructions, follow-up care, pt and pts father agreeable to call Dr. Stevens for treatment and followup 09:35 Patient left the ED. 3 Signatures: Caroline Monet, RN RN Marcin Clay MD MD cha Lam, Pin, MD MD pkl Salyer, Janae Shirley, RN RN fc Cliff Win em1 Deb Iraheta RN RN ss Leelee Jeffery cc Sven Winn, PA PA jr8 Sherri Puente RN RN hb Columba Sánchez, RN RN 2 Tennille Null 8 Yanelis Hidalgo [facility] Davin Upton RN RN Ilir Childress 2 Lucila Tidwell Edward eo Rayo, Manjula Carroll km7 Corrections: (The following items were deleted from the chart) 07/30 00:17 00:17 Safety checks: Items removed: yes. Door open/sign placed on door: yes. cc Family/friend present: no. Sitter present: Yes. cc 04:56 02:00 Safety checks: Items removed: yes. Door open/sign placed on door: yes. cc Family/friend present: no. Sitter present: No. cc 04:57 03:45 Safety checks: Items removed: yes. Door open/sign placed on door: yes. cc Family/friend present: no. Sitter present: No. cc 07/31 02:12 02:09 Refaxed patients information to all available psych facilities. mw2 mw2
--- NOTE | 2018-07-30 12:21 | EKG ---
Test Date: 2018-07-29 Test Time: 22:41:26 Warp Knit Operator: KIMBERLEEB MEASUREMENT RESULTS: Intervals: Rate: 102 ME: 130 QRSD: 86 QT: 358 QTc: 466 [place]: P: 68 ME: 130 QRS: 91 T: 19 INTERPRETIVE STATEMENTS: Sinus tachycardia Possible Left atrial enlargement Rightward axis Borderline ECG No previous ECG available for comparison Electronically Signed On 07-30-18 12:19:07 CDT by Thiago Martínez
[2018-07-31 10:04] VITALS: O2SAT 98
[2018-07-31 10:09] VITALS: BP 128/93; TEMP 97.1
== END 2018-07-31 09:35 | disposition home or self-care (01) ==
LOC: ER 22:23
DX: T14.91XA Suicide attempt, initial encounter (principal); F10.229 Alcohol dependence with intoxication, unspecified; F14.10 Cocaine abuse, uncomplicated; F33.9 Major depressive disorder, recurrent, unspecified; E87.6 Hypokalemia; X78.8XXA Intentional self-harm by other sharp object, initial encounter; Y93.9 Activity, unspecified; Y92.9 Unspecified place or not applicable; F17.210 Nicotine dependence, cigarettes, uncomplicated
CPT/HCPCS: 36415; 80048; 80076; 80307; 80320; 80329; 81003; 81025; 85025; 85610; 85730; 93005; 96365; 96366; 99285; J3411; J7030

== ENCOUNTER 2019-06-06 13:28 | Emergency (ER) | payer SELFPAY ==
--- NOTE | 2019-06-06 14:44 | RAD REPORT ---
EXAM DESCRIPTION: RAD - Wrist Right 3 View - 06/06/2019 2:29 pm CLINICAL HISTORY: PAIN Pain COMPARISON: No comparisons FINDINGS: No fracture or dislocation seen. Laceration is seen along the radial aspect of the wrist. No foreign body is visualized.
[2019-06-06] MEDS ORDERED: TETANUS & DIPHTHERIA TOX,ADULT 0.5 ML VIAL ONE (14:57)
[2019-06-06] MEDS ORDERED: BUPIVACAINE 0.5% PF 10 ML VIAL ONE (14:57)
[2019-06-06] MEDS ORDERED: LIDOCAINE 1% MPF 5 ML VIAL ONE (14:57)
--- NOTE | 2019-06-06 15:14 | ER ---
Nurse's Notes [facility] Name: Mallorie Munson Age: 29 yrs Sex: Female : 1990 Arrival Date: 06/06/2019 Time: 13:37 Bed 17 Private MD: Rich Stevens T Diagnosis: Laceration without foreign body of right wrist Presentation: 06/06 13:39 Presenting complaint: Patient states: I fell off of a chair and my hand went through a la1 window and the glass cut me. Pt reports laceration to right wrist, bleeding controlled, bandage already applied, CMS intact. Transition of care: patient was not received from another setting of care. Complicating Factors:. Onset of symptoms was June 06, 2019. Risk Assessment: Do you want to hurt yourself or someone else? Patient reports no desire to harm self or others. Initial Sepsis Screen: Does the patient meet any 2 criteria? No. Patient's initial sepsis screen is negative. Does the patient have a suspected source of infection? No. Patient's initial sepsis screen is negative. Care prior to arrival: None. 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 tw2 Historical: - Allergies: 13:41 No Known Allergies; la1 - Home Meds: 14:30 Xanax 2 mg Oral tab twice a day for Anxiety, Panic Disorder [Active]; tw2 - PMHx: 13:41 Anxiety; Depression; Panic Attacks; la1 - PSHx: 13:41 Tonsillectomy; la1 - Immunization history:: Adult Immunizations up to date. - Social history:: Smoking status: Patient uses tobacco products, smokes one pack cigarettes per day. - Ebola Screening: : No symptoms or risks identified at this time. Screenin:27 Abuse screen: Denies threats or abuse. Nutritional screening: No deficits noted. tw2 Tuberculosis screening: No symptoms or risk factors identified. Fall Risk None identified. Assessment: 14:21 General: Appears in no apparent distress. Behavior is calm, cooperative, appropriate tw2 for age. Pain: Complains of pain in right hand. Neuro: Level of Consciousness is awake, alert, obeys commands, Oriented to person, place, time, situation. Cardiovascular: Patient's skin is warm and dry. Respiratory: Airway is patent Respiratory effort is even, unlabored, Respiratory pattern is regular, symmetrical. GI: No signs and/or symptoms were reported involving the gastrointestinal system. : No signs and/or symptoms were reported regarding the genitourinary system. Derm: No signs and/or symptoms reported regarding the dermatologic system. Musculoskeletal: Circulation, motion, and sensation intact. Range of motion: intact in all extremities. Injury Description: Laceration sustained to lateral aspect of right wrist and medial aspect of right wrist is clean, not bleeding. 15:32 Reassessment: Patient appears in no apparent distress at this time. No changes from tw2 previously documented assessment. Patient and/or family updated on plan of care and expected duration. Pain level reassessed. Patient is alert, oriented x 3, equal unlabored respirations, skin warm/dry/pink. Vital Signs: 13:42 BP 142 / 91; Pulse 95; Resp 16; Temp 97.5; Pulse Ox 98% on R/A; Weight 56.7 kg; Height la1 5 ft. 2 in. (157.48 cm); 13:42 Body Mass Index 22.86 (56.70 kg, 157.48 cm) la1 ED Course: 13:37 Patient arrived in ED. ag5 13:37 Rich Stevens MD is Private Physician. ag5 13:41 Triage completed. la1 13:41 Arm band placed on left wrist. la1 14:00 Bed in low position. Call light in reach. tw2 14:20 Kirk Haro NP is PHCP. pm1 14:20 Enoc Morris MD is Attending Physician. pm1 14:21 Columba Sánchez RN is Primary Nurse. tw2 14:28 X-ray completed. Portable x-ray completed in exam room. Patient tolerated procedure ml well. 14:29 Wrist Right 3 View XRAY In Process Unspecified. EDMS 15:33 Assist provider with laceration repair on right hand that was 2.5 cm. or less using tw2 sutures. Set up tray. Performed by Kirk Haro RECREATIONAL ASSISTANT Dressed with 4X4s, Arian, Neosporin, coban Patient tolerated well. Patient did not have IV access during this emergency room visit. 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 Exp: tw2 02/13/2023. Lot #: [id number]. } Route: IM; Site: left deltoid; 15:32 Follow up: Response: No adverse reaction tw2 14:50 Drug: Bupivacaine (0.5 %) 10 ml Volume: 10 ml; Route: Infiltration; tw2 14:50 Drug: Lidocaine (1 %) 5 ml Volume: 5 ml; Route: Infiltration; tw2 Outcome: 15:13 Discharge ordered by MD. pm1 15:33 Discharged to home ambulatory, with significant other. tw2 15:33 Condition: stable 15:33 Discharge instructions given to patient, significant other, Instructed on discharge instructions, follow up and referral plans. medication usage, wound care, Demonstrated understanding of instructions, follow-up care, medications, Prescriptions given X 1. 15:34 Patient left the ED. tw2 Signatures: Dispatcher [employer] EDMS Reina Bocanegra Lee, RN RN la1 Kirk Haro NP RECREATIONAL ASSISTANT pm1 Columba Sánchez RN RN tw2 Camacho Rivera 5
--- NOTE | 2019-06-06 15:14 | EDPHYS ---
Physician Documentation [facility] Name: Mallorie Munson Age: 29 yrs Sex: Female : 1990 Arrival Date: 06/06/2019 Time: 13:37 Bed 17 Private MD: Rich Stevens T ED Physician Enoc Morris HPI: 06/06 14:33 This 29 yrs old Female presents to ER via Ambulatory with complaints of pm1 Laceration To Hand. 14:33 The patient has a laceration related to: changing drapes and accidentally put her right pm1 hand through glass. Pulled glass out of her right wrist occurred at home, and there are no complicating factors. The laceration(s) is(are) located on the right wrist. Onset: The symptoms/episode began/occurred just prior to arrival. Associated signs and symptoms: The patient has no apparent associated signs or symptoms, Pertinent negatives: deformity, heavy bleeding, numbness distal to injury, suspected foreign body. The patient has not experienced similar symptoms in the past. The patient has not recently seen a physician. 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 tw2 Historical: - Allergies: 13:41 No Known Allergies; la1 - Home Meds: 14:30 Xanax 2 mg Oral tab twice a day for Anxiety, Panic Disorder [Active]; tw2 - PMHx: 13:41 Anxiety; Depression; Panic Attacks; la1 - PSHx: 13:41 Tonsillectomy; la1 - Immunization history:: Adult Immunizations up to date. - Social history:: Smoking status: Patient uses tobacco products, smokes one pack cigarettes per day. - Ebola Screening: : No symptoms or risks identified at this time. ROS: 14:33 Constitutional: Negative for fever, chills, and weight loss, Eyes: Negative for injury, pm1 pain, redness, and discharge, ENT: Negative for injury, pain, and discharge, Neck: Negative for injury, pain, and swelling, Cardiovascular: Negative for chest pain, palpitations, and edema, Respiratory: Negative for shortness of breath, cough, wheezing, and pleuritic chest pain, Abdomen/GI: Negative for abdominal pain, nausea, vomiting, diarrhea, and constipation, Back: Negative for injury and pain. 14:33 Neuro: Negative for headache, weakness, numbness, tingling, and seizure. 14:33 MS/extremity: Positive for injury or acute deformity, of the right wrist. 14:33 Skin: Positive for laceration(s), of the right wrist. Exam: 14:33 Constitutional: This is a well developed, well nourished patient who is awake, alert, pm1 and in no acute distress. Head/Face: Normocephalic, atraumatic. Neck: Trachea midline, no thyromegaly or masses palpated, and no cervical lymphadenopathy. Supple, full range of motion without nuchal rigidity, or vertebral point tenderness. No Meningismus. Chest/axilla: Normal chest wall appearance and motion. Nontender with no deformity. No lesions are appreciated. Cardiovascular: Regular rate and rhythm with a normal S1 and S2. No gallops, murmurs, or rubs. Normal PMI, no JVD. No pulse deficits. Respiratory: Lungs have equal breath sounds bilaterally, clear to auscultation and percussion. No rales, rhonchi or wheezes noted. No increased work of breathing, no retractions or nasal flaring. Back: No spinal tenderness. No costovertebral tenderness. Full range of motion. 14:33 MS/ Extremity: Pulses equal, no cyanosis. Neurovascular intact. Full, normal range of motion. 14:33 Skin: Appearance: normal except for affected area, injury, laceration(s), the wound is approximately 3 cm(s), with a depth of 0.5 cm(s), of the palmar aspect of right wrist. 14:33 Neuro: Orientation: is normal, Motor: moves all fours, Sensation: is normal, no obvious gross deficits. Vital Signs: 13:42 BP 142 / 91; Pulse 95; Resp 16; Temp 97.5; Pulse Ox 98% on R/A; Weight 56.7 kg; Height la1 5 ft. 2 in. (157.48 cm); 13:42 Body Mass Index 22.86 (56.70 kg, 157.48 cm) la1 Laceration: 15:10 Wound Repair of 3cm ( 1.2in ) subcutaneous laceration to right wrist. Linear shaped.. pm1 Distal neuro/vascular/tendon intact. Anesthesia: Local anesthetic administered with 3 mls of 1% lidocaine. Wound prep: Extensive cleansing with hibiclenz by nurse, Wound irrigation with saline by me, Wound explored extensively, Copious irrigation. Skin closed with 3 4-0 Prolene using simple sutures and sterile technique. Dressed with Neosporin, 4x4's. Patient tolerated well. MDM: 14:21 Patient medically screened. pm1 15:10 Data reviewed: vital signs. Data interpreted: Pulse oximetry: on room air is 98 %. pm1 Interpretation: normal. Counseling: I had a detailed discussion with the patient and/or guardian regarding: the historical points, exam findings, and any diagnostic results supporting the discharge/admit diagnosis, radiology results, the need for outpatient follow up, suture removal in 10-14 days, to return to the emergency department if symptoms worsen or persist or if there are any questions or concerns that arise at home. 06/06 13:53 Order name: Wrist Right 3 View XRAY; Complete Time: 14:47 iw 06/06 14:33 Order name: Prolene, Sutures; Complete Time: 14:56 pm1 06/06 14:33 Order name: Dressing - Wound; Complete Time: 15:32 pm1 06/06 14:33 Order name: Gloves, Sterile; Complete Time: 14:40 pm1 06/06 14:33 Order name: Setup Suture Tray; Complete Time: 14:40 pm1 Administered Medications: 14:45 Drug: Tetanus-Diphtheria Toxoid Adult 0.5 ml {[employer] Boardh[employer]: [employer]. Exp: tw2 02/13/2023. Lot #: [id number]. } Route: IM; Site: left deltoid; 15:32 Follow up: Response: No adverse reaction tw2 14:50 Drug: Bupivacaine (0.5 %) 10 ml Volume: 10 ml; Route: Infiltration; tw2 14:50 Drug: Lidocaine (1 %) 5 ml Volume: 5 ml; Route: Infiltration; tw2 Disposition: 15:34 Co-signature as Attending Physician, Enoc Morris MD. rn Disposition: 06/06/19 15:13 Discharged to Home. Impression: Laceration without foreign body of right wrist. - Condition is Stable. - Discharge Instructions: Laceration Care, Adult. - Prescriptions for Keflex 500 mg Oral Capsule - take 1 capsule by ORAL route every 6 hours for 10 days; 40 capsule. - Medication Reconciliation Form, Thank You Letter, Antibiotic Education, Prescription Opioid Use form. - Follow up: Emergency Department; When: As needed; Reason: Worsening of condition. Follow up: Private Physician; When: 10 - 14 days; Reason: Recheck today's complaints, Continuance of care, Re-evaluation by your physician. - Problem is new. - Symptoms have improved. Signatures: Dispatcher [employer] EDMS Enoc Morris MD MD rn Attema, Lee RN RN la1 Kirk Haro, SUPERVISOR LIVESTOCK YARD SUPERVISOR LIVESTOCK YARD pm1 Columba Sánchez RN RN tw2 Corrections: (The following items were deleted from the chart) 15:34 15:13 06/06/2019 15:13 Discharged to Home. Impression: Laceration without foreign body tw2 of right wrist. Condition is Stable. Forms are Medication Reconciliation Form, Thank You Letter, Antibiotic Education, Prescription Opioid Use. Follow up: Emergency Department; When: As needed; Reason: Worsening of condition. Follow up: Private Physician; When: 10 - 14 days; Reason: Recheck today's complaints, Continuance of care, Re-evaluation by your physician. Problem is new. Symptoms have improved. pm1
[2019-06-06 15:55] VITALS: BP 142/91; TEMP 97.5; O2SAT 98
== END 2019-06-06 15:34 | disposition home or self-care (01) ==
LOC: ER 13:28
PROC: 0JQJ0ZZ Repair Right Hand Subcutaneous Tissue and Fascia, Open Approach (ICD-10-PCS; principal; 2019-06-06)
DX: S61.511A Laceration without foreign body of right wrist, initial encounter (principal); F41.8 Other specified anxiety disorders; W18.02XA Striking against glass with subsequent fall, initial encounter; Y93.E9 Activity, other interior property and clothing maintenance; Y92.009 Unspecified place in unspecified non-institutional (private) residence as the place of occurrence of the external cause; Z23 Encounter for immunization
CPT/HCPCS: 90471; 90714; 99284

== ENCOUNTER 2019-07-06 16:55 | Emergency (ER) | payer SELFPAY ==
--- NOTE | 2019-07-06 17:09 | ER ---
Nurse's Notes [facility] Name: Mallorie Munson Age: 29 yrs Sex: Female : 1990 Arrival Date: 07/06/2019 Time: 16:59 Bed Waiting Private MD: Diagnosis: Encounter for removal of sutures Presentation: 07/06 17:05 Presenting complaint: Patient states: I got stitches here about a month ago and need la1 them out. Transition of care: patient was not received from another setting of care. Onset of symptoms was July 06, 2019. Risk Assessment: Do you want to hurt yourself or someone else? Patient reports no desire to harm self or others. Initial Sepsis Screen: Does the patient meet any 2 criteria? No. Patient's initial sepsis screen is negative. Does the patient have a suspected source of infection? No. Patient's initial sepsis screen is negative. Care prior to arrival: None. 17:05 Method Of Arrival: Ambulatory la1 17:05 Acuity: MAX 5 la1 Triage Assessment: 17:08 General: Appears in no apparent distress. Behavior is calm, cooperative. Pain: Denies la1 pain. Historical: - Allergies: 17:07 No Known Allergies; la1 - PMHx: 17:07 Anxiety; Depression; Panic Attacks; la1 - Immunization history:: Adult Immunizations up to date. - Social history:: Smoking status: Patient/guardian denies using tobacco. - Ebola Screening: : No symptoms or risks identified at this time. Screenin:08 Abuse screen: Denies threats or abuse. Nutritional screening: No deficits noted. la1 Tuberculosis screening: No symptoms or risk factors identified. Fall Risk None identified. Assessment: 17:08 Reassessment: Patient is alert/active/playful, equal unlabored respirations, skin la1 warm/dry/pink. Wound to right wrist well approximated without signs of infection. Vital Signs: 17:07 BP 134 / 84; Pulse 78; Resp 16; Temp 98.1; Pulse Ox 98% on R/A; la1 ED Course: 16:59 Patient arrived in ED. as 17:01 Kirk Haro NP is PHCP. pm1 17:01 Marcin Mims MD is Attending Physician. pm1 17:06 Triage completed. la1 17:07 Arm band placed on right wrist. la1 17:08 Patient has correct armband on for positive identification. la1 17:08 No provider procedures requiring assistance completed. Patient did not have IV access la1 during this emergency room visit. Administered Medications: No medications were administered Outcome: 17:08 Discharge ordered by . pm1 17:08 Discharged to home ambulatory. la1 17:08 Condition: stable 17:08 Discharge instructions given to patient, Instructed on discharge instructions, follow up and referral plans. medication usage, Demonstrated understanding of instructions, follow-up care. 17:19 Patient left the ED. la1 Signatures: Natali Win Lee, RN RN la1 Kirk Haro, RILEY RESEARCH LIBRARIAN pm1
--- NOTE | 2019-07-06 17:09 | EDPHYS ---
Physician Documentation [facility] Name: Mallorie Munson Age: 29 yrs Sex: Female : 1990 Arrival Date: 07/06/2019 Time: 16:59 Bed Waiting Private MD: SHAQUILLE Physician Marcin Mims HPI: 07/06 17:12 This 29 yrs old Female presents to ER via Ambulatory with complaints of pm1 Suture Removal. 17:12 The patient has sutures on the right wrist. Previous treatment: The patient was pm1 initially treated on June 06, 2019, the care was rendered at [facility], Treatment type: The patient's original treatment included sutures, Outpatient prescription(s): The patient was given prescription(s) for Keflex, Previous recheck: the patient has not been checked since the original treatment. Sutures/sandra progress: The patient has no c/o's. The wound is well-healing with no redness, swelling, discharge, or dehiscence reported. The patient has not experienced similar symptoms in the past. The patient has not recently seen a physician. Historical: - Allergies: 17:07 No Known Allergies; la1 - PMHx: 17:07 Anxiety; Depression; Panic Attacks; la1 - Immunization history:: Adult Immunizations up to date. - Social history:: Smoking status: Patient/guardian denies using tobacco. - Ebola Screening: : No symptoms or risks identified at this time. ROS: 17:12 Constitutional: Negative for fever, chills, and weight loss. pm1 17:12 Cardiovascular: Negative for chest pain, palpitations, and edema, Respiratory: Negative for shortness of breath, cough, wheezing, and pleuritic chest pain, Neuro: Negative for headache, weakness, numbness, tingling, and seizure. 17:12 MS/extremity: Negative for deformity, pain, paresthesias, tingling. 17:12 Skin: Negative for abscesses, cellulitis. Exam: 17:12 Constitutional: This is a well developed, well nourished patient who is awake, alert, pm1 and in no acute distress. Head/Face: Normocephalic, atraumatic. Cardiovascular: Regular rate and rhythm with a normal S1 and S2. No gallops, murmurs, or rubs. Normal PMI, no JVD. No pulse deficits. Respiratory: Lungs have equal breath sounds bilaterally, clear to auscultation and percussion. No rales, rhonchi or wheezes noted. No increased work of breathing, no retractions or nasal flaring. 17:12 Skin: Wound recheck: Suture laceration closure: the edges are well approximated, no evidence of dehiscence, no drainage, no erythema, no swelling, sutures overgrown with skin, with appearance of callouses . Vital Signs: 17:07 BP 134 / 84; Pulse 78; Resp 16; Temp 98.1; Pulse Ox 98% on R/A; la1 Procedures: 17:12 Suture/Staple removal: Removed 3 sutures, from right wrist, site appears well healed, pm1 skin overgrowing a majority of each suture, Patient tolerated well. MDM: 17:07 Data reviewed: vital signs. Counseling: I had a detailed discussion with the patient pm1 and/or guardian regarding: the historical points, exam findings, and any diagnostic results supporting the discharge/admit diagnosis, to return to the emergency department if symptoms worsen or persist or if there are any questions or concerns that arise at home. 17:08 Patient medically screened. pm1 Administered Medications: No medications were administered Disposition: 07/07 10:28 Co-signature as Attending Physician, Marcin iMms MD I agree with the assessment and jaren plan of care. Disposition: 07/06/19 17:08 Discharged to Home. Impression: Encounter for removal of sutures. - Condition is Stable. - Discharge Instructions: Suture Removal, Care After. - Medication Reconciliation Form, Thank You Letter, Antibiotic Education, Prescription Opioid Use form. - Follow up: Emergency Department; When: As needed; Reason: Worsening of condition. Follow up: Private Physician; When: As needed; Reason: Recheck today's complaints, Continuance of care, Re-evaluation by your physician. - Problem is new. - Symptoms have improved. Signatures: Marcin Mims MD MD cha Attema, Lee, RN RN la1 Kirk Haro NP JACQUARD LOOM CARPET WEAVER pm1 Corrections: (The following items were deleted from the chart) 07/06 17:18 17:08 07/06/2019 17:08 Discharged to Home. Impression: Encounter for removal of la1 sutures. Condition is Stable. Forms are Medication Reconciliation Form, Thank You Letter, Antibiotic Education, Prescription Opioid Use. Follow up: Emergency Department; When: As needed; Reason: Worsening of condition. Follow up: Private Physician; When: As needed; Reason: Recheck today's complaints, Continuance of care, Re-evaluation by your physician. Problem is new. Symptoms have improved. pm1
[2019-07-06 18:43] VITALS: BP 134/84; TEMP 98.1; O2SAT 98
== END 2019-07-06 17:19 | disposition home or self-care (01) ==
LOC: ER 16:55
DX: Z48.02 Encounter for removal of sutures (principal)
CPT/HCPCS: 99281

== ENCOUNTER 2023-08-31 10:24 | Emergency (ER) | payer SELFPAY ==
[2023-08-31 11:25] LABS: Specific Gravity 1.021 (1.005-1.030)
[2023-08-31 11:27] LABS: Absolute Lymphocytes (CBC) 1.9 K/uL (0.7-4.9); Hematocrit 42.4 % (36.0-45.0); Lymphocytes % 21.7 % (15.3-44.8); MCV 87.3 fL (80-100); MPV 7.4 fL (7.6-11.3); Platelets 362 thou/uL (152-406); RBC Red Blood Cell Count 4.85 M/uL (3.86-4.86)
[2023-08-31 11:28] LABS: Specific Gravity 1.021 (1.005-1.030); Urine Bacteria <20 /HPF (<20); Urine Bilirubin NEGATIVE (Negative); Urine Blood Negative (Negative); Urine Clarity Extremely Turbid (Clear); Urine Color Light-Yellow (Yellow); Urine Glucose NEGATIVE (Negative); Urine Mucus Slight /HPF (None Seen); Urine Protein NEGATIVE (Negative); Urine RBC <5 /HPF (None Seen); Urine Urobilinogen Normal (Normal)
[2023-08-31] MEDS ORDERED: ONDANSETRON 4 MG/2 ML VIAL ONE (11:40)
[2023-08-31] MEDS ORDERED: NA CHLORIDE 0.9% 1,000 ML ONE (11:40)
[2023-08-31 11:57] LABS: Albumin 3.6 g/dL (3.4-5.0); Bilirubin Total 0.2 mg/dL (0.2-1.0); Potassium 3.3 mEq/L (3.5-5.1); Protein, Total 8.6 g/dL (6.4-8.2)
--- NOTE | 2023-08-31 12:24 | EDPHYS ---
Physician Documentation [facility] Name: Mallorie Munson Age: 33 yrs Sex: Female : 1990 Arrival Date: 08/31/2023 Time: 10:24 Bed 10 Private MD: ED Physician Enoc Morris HPI: 08/31 10:45 This 33 yrs old Female presents to ER via Ambulatory with complaints of Abdominal Pain, jh7 Nausea/Vomiting. 10:45 33-year-old female presents with nausea, vomiting, constipation, and urinary frequency jh7 for the past 2 weeks. Denies fever. States that she has noticed her abdomen growing and feels very bloated. LMP 2 months ago.. 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 - Social history:: Smoking status: Patient denies any tobacco usage or history of. ROS: 10:45 Constitutional: Negative for fever, chills, and weight loss, Eyes: Negative for injury, jh7 pain, redness, and discharge, Neck: Negative for injury, pain, and swelling, Cardiovascular: Negative for chest pain, palpitations, and edema, Respiratory: Negative for shortness of breath, cough, wheezing, and pleuritic chest pain, Back: Negative for injury and pain, MS/Extremity: Negative for injury and deformity, Skin: Negative for injury, rash, and discoloration, Neuro: Negative for headache, weakness, numbness, tingling, and seizure, 10:45 Abdomen/GI: Positive for nausea and vomiting, abdominal distension, Negative for abdominal pain, diarrhea, 10:45 All other systems are negative, Exam: 10:45 Constitutional: This is a well developed, well nourished patient who is awake, alert, jh7 and in no acute distress. Head/Face: Normocephalic, atraumatic. Cardiovascular: Regular rate and rhythm with a normal S1 and S2. No gallops, murmurs, or rubs. Normal PMI, no JVD. No pulse deficits. Respiratory: Lungs have equal breath sounds bilaterally, clear to auscultation and percussion. No rales, rhonchi or wheezes noted. No increased work of breathing, no retractions or nasal flaring. Back: No spinal tenderness. No costovertebral tenderness. Full range of motion. Skin: Warm, dry with normal turgor. Normal color with no rashes, no lesions, and no evidence of cellulitis. MS/ Extremity: Pulses equal, no cyanosis. Neurovascular intact. Full, normal range of motion. Neuro: Awake and alert, GCS 15, oriented to person, place, time, and situation. Motor strength 5/5 in all extremities. Sensory grossly intact. Normal gait. 10:45 Abdomen/GI: Inspection: abdomen appears normal, Bowel sounds: normal, Palpation: abdomen is soft and non-tender, Vital Signs: 10:42 BP 133 / 84; Pulse 82; Resp 16; Temp 98.6(TE); Pulse Ox 100% on R/A; Weight 58.97 kg; hb Height 5 ft. 4 in. ; Pain 0/10; 10:42 Body Mass Index 22.31 (58.97 kg, 162.56 cm) hb 10:42 Pain Scale: Adult hb MDM: 10:29 Patient medically screened. [facility] 12:25 Differential diagnosis: cholecystitis, Pelvic Inflammatory Disease, urinary tract 7 infection, . Data reviewed: vital signs, nurses notes, lab test result(s). I considered the following discharge prescriptions or medication management in the emergency department Medications were administered in the Emergency Department. See MAR. Counseling: I had a detailed discussion with the patient and/or guardian regarding the historical points, exam findings, and any diagnostic results supporting the discharge/admit diagnosis, the need for outpatient follow up, an OB/Gyne specialist, to return to the emergency department if symptoms worsen or persist or if there are any questions or concerns that arise at home. Response to treatment: the patient's symptoms have markedly improved after treatment. Special discussion: Inform the patient that she was and was likely experiencing morning sickness in her first trimester. Strongly advised that she follow-up with her COMPLAINT INVESTIGATIONS OFFICER to initiate care.. 08/31 10:46 Order name: CBC with Diff; Complete Time: 11:41 [facility] 08/31 10:46 Order name: CMP; Complete Time: 12:20 [facility] 08/31 10:46 Order name: Lipase; Complete Time: 12:20 [facility] 08/31 10:46 Order name: Test, Urine; Complete Time: 11:41 [facility] 08/31 10:46 Order name: Urinalysis w/ reflexes; Complete Time: 11:41 [facility] 08/31 10:46 Order name: Quantitative Hcg; Complete Time: 12:20 [facility] 08/31 10:46 Order name: IV Saline Lock; Complete Time: 11:15 [facility] 08/31 10:46 Order name: Labs collected and sent; Complete Time: 11:15 [facility] Administered Medications: 11:34 Drug: NS 0.9% IV 1000 ml IV at 1 bolus Per protocol; 1000 mL bolus Route: IV; Rate: 1 ap3 bolus; Site: right antecubital; 12:34 Follow up: IV Status: Completed infusion ap3 11:34 Drug: Ondansetron IVP 4 mg IVP once; over 2 minutes Route: IVP; Site: right antecubital;ap3 12:33 Follow up: Response: No adverse reaction; Nausea is decreased ap3 Disposition: 16:18 Co-signature as Attending Physician, Enoc Morris MD I reviewed the patient's care rn provided by the Advanced Practice Provider and agree with the diagnosis and treatment plan. Disposition Summary: 08/31/23 12:24 Discharge Ordered Notes: Location: Home [facility] Problem: new [facility] Symptoms: have improved [facility] Condition: Stable [facility] Diagnosis - Encounter for supervision of normal first , first trimester [facility] - Nausea with vomiting, unspecified [facility] Followup: [facility] - With: Private Physician - When: 2 - 3 days - Reason: Recheck today's complaints Discharge Instructions: - Discharge Summary Sheet [facility] - Nausea and Vomiting, Adult [facility] - First Trimester of , [id number] [facility] Forms: - Medication Reconciliation Form [facility] - Thank You Letter [facility] - Patient Portal Instructions [facility] - Leadership Thank You Letter [facility] Prescriptions: - ondansetron 4 mg Oral Tablet,disintegrating - take 1 tablet ORAL route every 4 to 6 hours As needed; 20 tablet; Refills: 0, jh7 Product Selection Permitted Signatures: Dispatcher [employer] EDEnoc Mcdonough MD MD rn Baxter, Heather, RN RN hb Prokisch, Agata, RN RN ap3 Rose Marie Bell, INTERPERSONAL COMMUNICATIONS PROFESSOR INTERPERSONAL COMMUNICATIONS PROFESSOR jh7
--- NOTE | 2023-08-31 12:24 | ER ---
Nurse's Notes [facility] Name: Mallorie Munson Age: 33 yrs Sex: Female : 1990 Arrival Date: 08/31/2023 Time: 10:24 Bed 10 Private MD: Diagnosis: Encounter for supervision of normal first , first trimester;Nausea with vomiting, unspecified Presentation: 08/31 10:42 Chief complaint: N/V, abdominal bloating, and constipation x 2 weeks. Coronavirus hb screen: At this time, the client does not indicate any symptoms associated with coronavirus-19. Ebola Screen: No symptoms or risks identified at this time. Initial Sepsis Screen: Does the patient meet any 2 criteria? No. Patient's initial sepsis screen is negative. Does the patient have a suspected source of infection? No. Patient's initial sepsis screen is negative. Risk Assessment: Do you want to hurt yourself or someone else? Patient reports no desire to harm self or others. Onset of symptoms was August 17, 2023. 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 - Social history:: Smoking status: Patient denies any tobacco usage or history of. Screenin:[facility] ED Fall Risk Assessment (Adult) History of falling in the last 3 months, ap3 including since admission No falls in past 3 months (0 pts). Abuse screen: Denies threats or abuse. Nutritional screening: No deficits noted. Tuberculosis screening: No symptoms or risk factors identified. Assessment: 11:32 General: Appears in no apparent distress. Behavior is calm, cooperative, appropriate ap3 for age. Pain: Complains of pain in abdomen. Neuro: Level of Consciousness is awake, alert, obeys commands, Oriented to person, place, time, situation. Cardiovascular: Patient's skin is warm and dry. Respiratory: Airway is patent Respiratory effort is even, unlabored, Respiratory pattern is regular, symmetrical. GI: Abd is soft Abd is non tender. 12:33 GI: Bowel sounds present X 4 quads. ap3 Vital Signs: 10:42 BP 133 / 84; Pulse 82; Resp 16; Temp 98.6(TE); Pulse Ox 100% on R/A; Weight 58.97 kg; hb Height 5 ft. 4 in. ; Pain 0/10; 10:42 Body Mass Index 22.31 (58.97 kg, 162.56 cm) hb 10:42 Pain Scale: Adult hb ED Course: 10:26 Patient arrived in ED. mr 10:29 Rose Marie Bell, [facility] 10:29 Enoc Morris MD is Attending Physician. 7 10:43 Triage completed. hb 10:44 Arm band placed on. hb 11:15 CBC with Diff Sent. bc6 11:15 CMP Sent. bc6 11:15 Lipase Sent. bc6 11:15 Test, Urine Sent. bc6 11:15 Urinalysis w/ reflexes Sent. bc6 11:15 Quantitative Hcg Sent. bc6 11:15 Inserted saline lock: 20 gauge in left antecubital area, using aseptic technique. Blood bc6 collected. 11:26 Agata Jimenes, RN is Primary Nurse. ap3 11:34 Patient has correct armband on for positive identification. ap3 12:33 Provided Education on: discharge education. ap3 12:33 No provider procedures requiring assistance completed. IV discontinued, intact, ap3 bleeding controlled, No redness/swelling at site. Pressure dressing applied. Administered Medications: 11:34 Drug: NS 0.9% IV 1000 ml IV at 1 bolus Per protocol; 1000 mL bolus Route: IV; Rate: 1 ap3 bolus; Site: right antecubital; 12:34 Follow up: IV Status: Completed infusion ap3 11:34 Drug: Ondansetron IVP 4 mg IVP once; over 2 minutes Route: IVP; Site: right antecubital;ap3 12:33 Follow up: Response: No adverse reaction; Nausea is decreased ap3 Medication: 11:34 VIS not applicable for this client. ap3 Outcome: 12:24 Discharge ordered by . jh7 12:33 Discharged to home ambulatory, ap3 12:33 Condition: good 12:33 Discharge instructions given to patient, Instructed on discharge instructions, follow up and referral plans. medication usage, Demonstrated understanding of instructions, follow-up care, medications, Prescriptions given X 1, 12:34 Patient left the ED. ap3 Signatures: Gabi Andrews, Luis Reg mr PuenteTiny, RN RN hb Agata Jimenes RN RN ap3 Rose Marie Bell, HOT SAW HELPER HOT SAW HELPER 7 Obdulia Wisdom 6 Corrections: (The following items were deleted from the chart) 10:44 10:42 Chief complaint: N/V, abdominal bloating, and constipation x 2 weeks hb hb 10:45 10:42 BP 133 / 84; Pulse 82bpm; Resp 16bpm; Pulse Ox 100% RA; Temp 98.6F Temporal; hb hb
[2023-08-31 12:59] VITALS: BP 133/84; TEMP 98.6; O2SAT 100
== END 2023-08-31 12:34 | disposition home or self-care (01) ==
LOC: ER 10:24
DX: R11.2 Nausea with vomiting, unspecified (principal); Z33.1 Pregnant state, incidental
CPT/HCPCS: 36415; 80053; 81001; 81025; 83690; 84702; 85025; 96361; 96374; 99284; J2405; J7030

== ENCOUNTER 2023-10-04 14:00 | Emergency (ER) | payer SELFPAY ==
[2023-10-04 15:39] LABS: Absolute Lymphocytes (CBC) 1.6 K/uL (0.7-4.9); Hematocrit 37.6 % (36.0-45.0); Lymphocytes % 20.4 % (15.3-44.8); MPV 7.8 fL (7.6-11.3); Platelets 286 thou/uL (152-406); RBC Red Blood Cell Count 4.28 M/uL (3.86-4.86)
[2023-10-04 15:41] LABS: Specific Gravity 1.021 (1.005-1.030)
[2023-10-04 15:55] LABS: Specific Gravity 1.021 (1.005-1.030); Urine Bacteria <20 /HPF (<20); Urine Bilirubin NEGATIVE (Negative); Urine Blood 3+ (Negative); Urine Clarity Extremely Turbid (Clear); Urine Color Light-Yellow (Yellow); Urine Glucose NEGATIVE (Negative); Urine Mucus Slight /HPF (None Seen); Urine Protein NEGATIVE (Negative); Urine RBC <5 /HPF (None Seen); Urine Urobilinogen Normal (Normal); Urine pH 6.5 (5.0-7.0)
[2023-10-04 16:38] LABS: Potassium 3.6 mEq/L (3.5-5.1)
--- NOTE | 2023-10-04 17:18 | RAD REPORT ---
EXAM DESCRIPTION: US - OB Limited - 10/04/2023 4:53 pm CLINICAL HISTORY: VAGINAL BLEEDING COMPARISON: OBSTETRICAL COMPLETE dated 08/23/2007 TECHNIQUE: Sonographic grayscale and color flow images of a first-trimester were obtained through transabdominal approach. FINDINGS: A single live intrauterine is identified. Central canal measures 3.7 cm in lengt h. Small volume fluid present along the canal. No evidence of placenta previa. [place]-rump length measures 44 millimeters, corresponding to gestational age of 11 weeks, 2 days. heart rate: 170 BPM. Myometrial contraction underlying the placenta anteriorly. Subjectively normal volume of amniotic flu id. No yolk sac is visualized. Maternal ovaries are not visualized. No free fluid. IMPRESSION: 1. Single live intrauterine . 2. Calculated gestational age: 11 weeks, 2 days. Estimated due date by ultrasound: 04/22/2024. 3. Small volume fluid along the cervical canal trauma may relate to ongoing bleeding.
--- NOTE | 2023-10-04 17:51 | ER ---
Nurse's Notes [facility] Name: Mallorie Munson Age: 33 yrs Sex: Female : 1990 Arrival Date: 10/04/2023 Time: 14:00 Bed DIS1 Private MD: Diagnosis: Threatened , vaginal bleeding Presentation: 10/04 14:30 Chief complaint: Patient states: I came in about a month ago and found out i am kd3 and i woke up this morning and i was cramping. I started bleeding with clots today. this is my fourth and i have never miscarried. Coronavirus screen: Vaccine status: Patient reports being unvaccinated. Ebola Screen: No symptoms or risks identified at this time. Initial Sepsis Screen: Does the patient meet any 2 criteria? No. Patient's initial sepsis screen is negative. Does the patient have a suspected source of infection? No. Patient's initial sepsis screen is negative. Risk Assessment: Do you want to hurt yourself or someone else? Patient reports no desire to harm self or others. Onset of symptoms was October 04, 2023. 14:30 Method Of Arrival: Ambulatory kd3 14:30 Acuity: MAX 3 kd3 Triage Assessment: 14:32 General: Appears in no apparent distress. Behavior is calm, cooperative. Pain: kd3 Complains of pain in abdomen. : No deficits noted. Historical: - Allergies: 14:32 No Known Allergies; kd3 - PMHx: 14:32 Anxiety; Depression; Panic Attacks; kd3 - Immunization history:: Adult Immunizations up to date. - Social history:: Smoking status: Patient reports the use of cigarette tobacco products, 1 a day . Screenin:02 [facility] ED Fall Risk Assessment (Adult) Score/Fall Risk Level 0 - 2 = Low Risk. Abuse iw screen: Denies threats or abuse. Denies injuries from another. Nutritional screening: No deficits noted. Tuberculosis screening: No symptoms or risk factors identified. Assessment: 15:02 General: Appears in no apparent distress. Behavior is calm, cooperative. Pain: iw Complains of pain in abdomen. Neuro: Level of Consciousness is awake, alert, obeys commands, Oriented to person, place, time, situation. Vital Signs: 14:30 Pulse 86; Resp 17; Temp 99(TE); Pulse Ox 98% ; Weight 68.04 kg; Height 5 ft. 4 in. ; kd3 14:30 BP 127 / 85; kd3 14:30 Body Mass Index 25.75 (68.04 kg, 162.56 cm) kd3 ED Course: 14:02 Patient arrived in ED. mr 14:32 Triage completed. kd3 14:32 Arm band placed on left wrist. kd3 14:44 Jessica Timmons MD is Attending Physician. sp3 16:54 OB Limited In Process Unspecified. EDMS 18:00 No provider procedures requiring assistance completed. IV discontinued, intact, iw bleeding controlled, No redness/swelling at site. Pressure dressing applied. 18:05 Helene Padilla, RN is Primary Nurse. iw Administered Medications: No medications were administered Medication: 18:00 VIS not applicable for this client. iw Outcome: 17:50 Discharge ordered by . sp3 18:05 Patient left the ED. iw 18:05 Discharged to home ambulatory, iw 18:05 Condition: good 18:05 Discharge instructions given to patient, Instructed on discharge instructions, follow up and referral plans. Demonstrated understanding of instructions, follow-up care, Signatures: Dispatcher [employer] EDIN Gabi Andrews, Reg Reg mr Helene Padilla, RN RN iw Jessica Timmons MD MD sp3 Malia Covarrubias RN RN kd3 Corrections: (The following items were deleted from the chart) 16:54 16:41 In radiology for Transvaginal Ob+US.RAD.[facility]. [facility] EDIN
--- NOTE | 2023-10-04 17:51 | EDPHYS ---
Physician Documentation [facility] Name: Mallorie Munson Age: 33 yrs Sex: Female : 1990 Arrival Date: 10/04/2023 Time: 14:00 Bed DIS1 Private MD: ED Physician Jessica Timmons HPI: 10/04 15:47 This 33 yrs old Female presents to ER via Ambulatory with complaints of Vaginal sp3 Bleeding, + Preg <12wks, Abdominal Pain. 15:47 33-year-old G4, now for "several months" who now presents to the ED for sp3 chief complaint vaginal bleeding, lower abdominal cramping and "not feeling right". Patient states that she just got her Medicaid approved and she has an OB scheduled but has not had a chance to be seen. Her second child at the age of 1 and her was a spontaneous miscarriage. Patient states she has a level of bleeding consistent with a heavy period with several clots. Patient denies headache, fever, URI symptoms, shortness of breath, chest pain, back pain, syncope, near syncope, rash, bleeding in other places, or any other signs or symptoms on ROS at this time.. Historical: - Allergies: 14:32 No Known Allergies; kd3 - PMHx: 14:32 Anxiety; Depression; Panic Attacks; kd3 - Immunization history:: Adult Immunizations up to date. - Social history:: Smoking status: Patient reports the use of cigarette tobacco products, 1 a day . ROS: 15:50 Constitutional: Negative for fever, chills, and weight loss, Eyes: Negative for injury, sp3 pain, redness, and discharge, ENT: Negative for injury, pain, and discharge, Neck: Negative for injury, pain, and swelling, Cardiovascular: Negative for chest pain, palpitations, and edema, Respiratory: Negative for shortness of breath, cough, wheezing, and pleuritic chest pain, Back: Negative for injury and pain, MS/Extremity: Negative for injury and deformity, Skin: Negative for injury, rash, and discoloration, Neuro: Negative for headache, weakness, numbness, tingling, and seizure, Psych: Negative for depression, anxiety, suicide ideation, homicidal ideation, and hallucinations, Allergy/Immunology: Negative for hives, rash, and allergies, Endocrine: Negative for neck swelling, polydipsia, polyuria, polyphagia, and marked weight changes, Hematologic/Lymphatic: Negative for swollen nodes, abnormal bleeding, and unusual bruising, 15:50 All other systems are negative, Exam: 15:50 Constitutional: This is a well developed, well nourished patient who is awake, alert, sp3 and in no acute distress. Head/Face: Normocephalic, atraumatic. Eyes: Pupils equal round and reactive to light, extra-ocular motions intact. Lids and lashes normal. Conjunctiva and sclera are non-icteric and not injected. Cornea within normal limits. Periorbital areas with no swelling, redness, or edema. Neck: Trachea midline, no thyromegaly or masses palpated, and no cervical lymphadenopathy. Supple, full range of motion without nuchal rigidity, or vertebral point tenderness. No Meningismus. Chest/axilla: Normal chest wall appearance and motion. Nontender with no deformity. No lesions are appreciated. Cardiovascular: Regular rate and rhythm with a normal S1 and S2. No gallops, murmurs, or rubs. Normal PMI, no JVD. No pulse deficits. Respiratory: Lungs have equal breath sounds bilaterally, clear to auscultation and percussion. No rales, rhonchi or wheezes noted. No increased work of breathing, no retractions or nasal flaring. Skin: Warm, dry with normal turgor. Normal color with no rashes, no lesions, and no evidence of cellulitis. MS/ Extremity: Pulses equal, no cyanosis. Neurovascular intact. Full, normal range of motion. Neuro: Awake and alert, GCS 15, oriented to person, place, time, and situation. Cranial nerves II-XII grossly intact. Motor strength 5/5 in all extremities. Sensory grossly intact. Cerebellar exam normal. Normal gait. Psych: Awake, alert, with orientation to person, place and time. Behavior, mood, and affect are within normal limits. 15:50 Abdomen/GI: Mild tenderness to lower abdomen bilaterally with no peritoneal signs, rebound or guarding. Pelvic exam deferred to ultrasound and we will examine with speculum if needed., Vital Signs: 14:30 Pulse 86; Resp 17; Temp 99(TE); Pulse Ox 98% ; Weight 68.04 kg; Height 5 ft. 4 in. ; kd3 14:30 BP 127 / 85; kd3 14:30 Body Mass Index 25.75 (68.04 kg, 162.56 cm) kd3 MDM: 15:14 Patient medically screened. sp3 15:50 Data reviewed: vital signs, nurses notes, lab test result(s), radiologic studies. ED sp3 course: 33-year-old female with vaginal bleeding with approximately 6 to 9-week . Exact dates unknown. Differential diagnosis includes spontaneous miscarriage, threatened miscarriage, or other VACUUM TESTER CANS pathology. I am not highly suspicious for pathology, GI pathology, vascular pathology or any other process including sepsis and shock. Also not highly suspicious for ectopic or heterotopic at this time. Vital signs are within normal limits and patient is in no acute distress. Ultrasound, labs and UA are all pending and we will disposition once these are reviewed accordingly.. 17:49 ED course: Ultrasound demonstrates viable SLIUP. Will discharge patient home with sp3 diagnosis threatened AB. Please see ultrasound report for dates and full measurements. heart rate was 170.. 10/04 15:13 Order name: Abo/rh Typing; Complete Time: 16:59 sp3 10/04 15:13 Order name: Basic Metabolic Panel; Complete Time: 16:59 sp3 10/04 15:13 Order name: CBC with Diff; Complete Time: 16:59 sp3 10/04 15:13 Order name: Test, Urine; Complete Time: 16:59 sp3 10/04 15:13 Order name: Quantitative Hcg; Complete Time: 16:59 sp3 10/04 15:13 Order name: Urinalysis w/ reflexes; Complete Time: 16:59 sp3 10/04 16:54 Order name: OB Limited; Complete Time: 17:39 EDMS 10/04 15:13 Order name: IV Saline Lock sp3 10/04 15:13 Order name: Labs collected and sent sp3 10/04 15:13 Order name: NPO sp3 Administered Medications: No medications were administered Disposition Summary: 10/04/23 17:50 Discharge Ordered Notes: Location: Home sp3 Condition: Stable sp3 Diagnosis - Threatened , vaginal bleeding sp3 Followup: sp3 - With: Private Physician - When: Upon discharge from the Emergency Department - Reason: Recheck today's complaints, Continuance of care Discharge Instructions: - Discharge Summary Sheet sp3 - Threatened Miscarriage sp3 Forms: - Medication Reconciliation Form sp3 - Thank You Letter sp3 - Antibiotic Education sp3 - Prescription Opioid Use sp3 - Patient Portal Instructions sp3 - Leadership Thank You Letter sp3 Signatures: Dispatcher [employer] EDMS Jessica Timmons MD MD sp3 Malia Covarrubias RN RN kd3 Corrections: (The following items were deleted from the chart) 16:54 15:14 Transvaginal Ob+US.RAD.BRZ ordered. EDMS EDMS
[2023-10-04 18:10] VITALS: BP 127/85; TEMP 99; O2SAT 98
== END 2023-10-04 18:05 | disposition home or self-care (01) ==
LOC: ER 14:00
DX: O20.0 Threatened abortion (principal)
CPT/HCPCS: 36415; 76815; 80048; 81001; 81025; 84702; 85025; 86900; 86901; 99283